=== PATIENT | female | born 1970 | race Caucasian/White ===

== ENCOUNTER 2016-11-18 22:53 | Emergency (ER) | payer SELFPAY | END 2016-11-18 23:00 | disposition home or self-care (01) | LOC: ER 22:53 | DX: S46.911A Strain of unspecified muscle, fascia and tendon at shoulder and upper arm level, right arm, initial encounter (principal); Z88.0 Allergy status to penicillin; Z88.2 Allergy status to sulfonamides; X58.XXXA Exposure to other specified factors, initial encounter | CPT/HCPCS: 73030-RT; 96372; 99284; J2930 ==